=== PATIENT | male | born 1985 | race American Indian/Alaskan Native ===

== ENCOUNTER 2016-08-02 10:33 | Emergency (ER) | payer MEDICAID, OTHER ==
[2016-08-02 13:42] LABS: Bacteria,Urine 1+ /HPF (Negative); Bilirubin,Urine NEG (Negative); Blood,Urine NEG (Negative); Ketones,Urine NEG (Negative); Leukocyte Esterase,Urine LG (Negative); Mucus,Urine FEW /HPF; Nitrite,Urine NEG (Negative); Protein,Urine <15 mg/dL mg/dL (Negative)
[2016-08-02] MEDS ORDERED: XYLOCAINE 1% MPF 5 mL INFILTRATI ONE (13:53)
[2016-08-02] MEDS ORDERED: ROCEPHIN IM ONE (13:53)
[2016-08-02] MEDS ORDERED: ZITHROMAX PO ONE (13:53)
--- NOTE | 2016-08-02 13:53 | Emergency Department Report ---
HPI - General Chief Complaint: Urogenital-Male Time Seen by Provider: 08/02/16 12:07 - HPI HPI: 30-year-old male presents today with burning upon urination that started this morning. Positive for white-yellow penile discharge times one day. Denies blood in urine, increased urinary frequency or urgency. Denies testicular pain or masses. Denies history of STD. Positive for recent unprotected sex. Denies fevers, chills, nausea, vomiting, chest pain, shortness of breath, abdominal pain. ED Past Medical Hx - Past Medical History Previous Medical History?: No - Surgical History Past Surgical History?: No - Social History Smoking Status: Light Tobacco Smoker Substance Use Type: None - Medications Home Medications: Home Medications Medication Instructions Recorded Confirmed Last Taken Type Acetaminophen/Codeine [Tylenol #3] 1 tab PO Q6H PRN #12 tab 08/29/15 Unknown Rx Cephalexin [Keflex] 500 mg PO Q6HR #20 capsule 08/29/15 Unknown Rx Sulfamethoxazole/Trimethoprim 1 each PO BID #6 tablet 08/02/16 Unknown Rx [Bactrim DS TAB] ED Review of Systems ROS: Stated complaint: POSS STD Other details as noted in HPI Constitutional: denies: chills, fever, malaise Eyes: denies: eye pain ENT: denies: ear pain, throat pain, congestion Respiratory: denies: cough, shortness of breath, wheezing Cardiovascular: denies: chest pain, palpitations Endocrine: no symptoms reported Gastrointestinal: denies: abdominal pain, nausea, vomiting Genitourinary: dysuria, discharge. denies: urgency, frequency, hematuria, testicular pain, testicular mass Musculoskeletal: denies: back pain Neurological: denies: headache, weakness Physical Exam - Physical Exam Vital Signs: Vital Signs 08/02/16 10:48 Temperature 98.1 F Pulse Rate 81 Respiratory 16 Rate Blood Pressure 124/74 O2 Sat by Pulse 100 Oximetry Physical Exam: GENERAL: The patient is well-developed and well-nourished. Patient is in NAD. HEAD: Normocephalic. Atraumatic. CHEST/LUNGS: Clear to auscultation throughout. HEART/CARDIOVASCULAR: Regular rate and rhythm. ABDOMEN: Abdomen is soft, nontender. Bowel sounds normoactive. No guarding or rebound tenderness. Negative for CVA tenderness bilaterally. EXTREMITIES: Peripheral pulses intact. Capillary refill less than 2 seconds. NEURO: Alert and oriented x 3. Normal gait. ED Course Vital Signs 08/02/16 10:48 Temperature 98.1 F Pulse Rate 81 Respiratory 16 Rate Blood Pressure 124/74 O2 Sat by Pulse 100 Oximetry ED Medical Decision Making - Lab Data Vital Signs 08/02/16 10:48 Temperature 98.1 F Pulse Rate 81 Respiratory 16 Rate Blood Pressure 124/74 O2 Sat by Pulse 100 Oximetry Lab Results 08/02/16 Range/Units Unknown Urine Color Yellow (Yellow) Urine Turbidity Slightly-cloudy (Clear) Urine pH 7.0 (5.0-7.0) Ur Specific Leon 1.015 (1.003-1.030) Urine Protein <15 mg/dl (Negative) mg/dL Urine Glucose (UA) Neg (Negative) mg/dL Urine Ketones Neg (Negative) mg/dL Urine Blood Neg (Negative) Urine Nitrite Neg (Negative) Urine Bilirubin Neg (Negative) Urine Urobilinogen 2.0 (<2.0) mg/dL Ur Leukocyte Esterase Lg (Negative) Urine WBC (Auto) 81.0 H (0.0-6.0) /HPF Urine RBC (Auto) 6.0 (0.0-6.0) /HPF Urine Bacteria (Auto) 1+ (Negative) /HPF Urine Mucus Few /HPF - Medical Decision Making 30-year-old male presents today with dysuria and penile discharge. Patient's urinalysis reveals elevated leukocyte esterase and urine WBC. Patient was treated with azithromycin and ceftriaxone. Patient is in no acute distress at this time. He will be discharged home and is encouraged to follow up with a primary care provider. He will be sent home on Bactrim and is encouraged to return to the emergency room for any worsening symptoms. Critical care attestation.: If time is entered above; I have spent that time in minutes in the direct care of this critically ill patient, excluding procedure time. ED Disposition Clinical Impression: Penile discharge UTI (urinary tract infection) Qualifiers: Urinary tract infection type: acute cystitis Hematuria presence: without hematuria Qualified Code(s): N30.00 - Acute cystitis without hematuria Disposition: DISCHARGED TO HOME OR SELFCARE Is pt being admited?: No Does the pt Need Aspirin: No Condition: Stable Instructions: Gonococcal Urethritis (ED), Chlamydia Infection (ED), Urinary Tract Infection in Men (ED) Additional Instructions: Follow-up with primary care provider. Return to the emergency department if symptoms worsen. Prescriptions: Sulfamethoxazole/Trimethoprim [Bactrim DS TAB] 1 each PO BID #6 tablet Referrals: PRIMARY CARE, [Primary Care Provider] - 3-5 Days [facility] [Outside] - 3-5 Days Forms: Work/School Release Form(ED), STI Treatment and Prevention Time of Disposition: 14:22
[2016-08-02 14:57] VITALS: BP 120/70
== END 2016-08-02 14:56 | disposition home or self-care (01) ==
LOC: ED 10:33
DX: R36.9 Urethral discharge, unspecified (principal); N30.00 Acute cystitis without hematuria; Z72.0 Tobacco use
CPT/HCPCS: 81001; 96372; 99283; J0696

== ENCOUNTER 2017-04-23 01:45 | Emergency (ER) | payer SELFPAY ==
[2017-04-23] MEDS ORDERED: ZITHROMAX PO ONE (03:42)
[2017-04-23] MEDS ORDERED: ROCEPHIN IM ONE (03:43)
[2017-04-23] MEDS ORDERED: XYLOCAINE 1% MPF 5 mL INFILTRATI ONE (03:43)
--- NOTE | 2017-04-23 03:43 | Emergency Department Report ---
ED Male HPI - General Chief complaint: Urogenital-Male Stated complaint: PAINFUL URINATION WITH PENILE D/C Time Seen by Provider: 04/23/17 03:39 Source: patient Mode of arrival: Ambulatory Limitations: No Limitations - History of Present Illness Initial comments: 31-year-old male past medical history none presents with complaint of one day of dysuria and urethral discharge slightly whitish yellowish in color. Denies abdominal pain nausea vomiting testicular pain testicular swelling or any genitourinary rash otherwise. Patient states that there is some burning with urination which she has been experienced for approximately 2 days. Patient is currently sexually active and has had at least 1-2 unprotected sex partners in the last 3-6 months MD Complaint: dysuria Onset/Timin -: days(s) Severity: moderate Quality: burning Consistency: intermittent Worsens with: urination new sexual partner discharge (whitish/yellowish discharge from urethra) - Related Data Previous Rx's Medication Instructions Recorded Last Taken Type Acetaminophen/Codeine [Tylenol #3] 1 tab PO Q6H PRN #12 tab 08/29/15 Unknown Rx Cephalexin [Keflex] 500 mg PO Q6HR #20 capsule 08/29/15 Unknown Rx Sulfamethoxazole/Trimethoprim 1 each PO BID #6 tablet 08/02/16 Unknown Rx [Bactrim DS TAB] Allergies Allergy/AdvReac Type Severity Reaction Status Date / Time No Known Allergies Allergy Verified 08/29/15 08:28 ED Review of Systems ROS: Stated complaint: PAINFUL URINATION WITH PENILE D/C Other details as noted in HPI Constitutional: denies: chills, fever Eyes: denies: eye pain, eye discharge, vision change ENT: denies: ear pain, throat pain Respiratory: denies: cough, shortness of breath, wheezing Cardiovascular: denies: chest pain, palpitations Endocrine: no symptoms reported Gastrointestinal: denies: abdominal pain, nausea, diarrhea Genitourinary: dysuria, discharge. denies: urgency Musculoskeletal: denies: back pain, joint swelling, arthralgia Skin: denies: rash, lesions Neurological: denies: headache, weakness, paresthesias Psychiatric: denies: anxiety, depression Hematological/Lymphatic: denies: easy bleeding, easy bruising ED Past Medical Hx - Past Medical History Previous Medical History?: No - Surgical History Past Surgical History?: No - Social History Smoking Status: Current Every Day Smoker Substance Use Type: None - Medications Home Medications: Home Medications Medication Instructions Recorded Confirmed Last Taken Type Acetaminophen/Codeine [Tylenol #3] 1 tab PO Q6H PRN #12 tab 08/29/15 Unknown Rx Cephalexin [Keflex] 500 mg PO Q6HR #20 capsule 08/29/15 Unknown Rx Sulfamethoxazole/Trimethoprim 1 each PO BID #6 tablet 08/02/16 Unknown Rx [Bactrim DS TAB] ED Physical Exam - General Limitations: No Limitations General appearance: alert, in no apparent distress - Head Head exam: Present: atraumatic, normocephalic - Eye Eye exam: Present: normal appearance, PERRL, EOMI - ENT ENT exam: Present: mucous membranes moist - Neck Neck exam: Present: normal inspection - Respiratory Respiratory exam: Present: normal lung sounds bilaterally. Absent: respiratory distress - Cardiovascular Cardiovascular Exam: Present: regular rate, normal rhythm. Absent: systolic murmur, diastolic murmur, rubs, gallop - GI/Abdominal GI/Abdominal exam: Present: soft, normal bowel sounds - Rectal Rectal exam: Present: deferred - exam: Present: urethral discharge (slightly whitish yellowish urethral discharge) - Extremities Exam Extremities exam: Present: normal inspection - Back Exam Back exam: Present: normal inspection - Neurological Exam Neurological exam: Present: alert, oriented X3 - Psychiatric Psychiatric exam: Present: normal affect, normal mood - Skin Skin exam: Present: warm, dry, intact, normal color. Absent: rash ED Course Vital Signs 04/23/17 04/23/17 02:04 04:33 Temperature 98.8 F Pulse Rate 79 66 Respiratory 18 18 Rate Blood Pressure 132/79 129/85 O2 Sat by Pulse 99 96 Oximetry ED Medical Decision Making - Medical Decision Making A/P: Urethritis 1-patient empirically treated with azithromycin and ceftriaxone 2-GC cultures sent 3-patient given follow-up with primary care, advised on safe sex practices Critical care attestation.: If time is entered above; I have spent that time in minutes in the direct care of this critically ill patient, excluding procedure time. ED Disposition Clinical Impression: Urethritis, Penile discharge Disposition: DC-01 TO HOME OR SELFCARE Is pt being admited?: No Does the pt Need Aspirin: No Condition: Stable Instructions: Nonspecific Urethritis in Men (ED) Referrals: [facility] [Outside] - 3-5 Days Forms: STI Treatment and Prevention Time of Disposition: 03:42
[2017-04-23 04:36] VITALS: BP 129/85
[2017-04-23 04:36] LABS: Bacteria,Urine 1+ /HPF (Negative); Bilirubin,Urine NEG (Negative); Blood,Urine MOD (Negative); Ketones,Urine NEG (Negative); Leukocyte Esterase,Urine LG (Negative); Mucus,Urine 2+ /HPF; Nitrite,Urine NEG (Negative); Urobilinogen,Urine < 2.0 mg/dL (<2.0); WBC,Urine > 182.0 /HPF (0.0-6.0)
== END 2017-04-23 04:36 | disposition home or self-care (01) ==
LOC: ED 01:45
DX: N34.2 Other urethritis (principal); F17.200 Nicotine dependence, unspecified, uncomplicated
CPT/HCPCS: 81001; 87591; 96372; 99283; J0696